=== PATIENT | female | born 1965 | race Caucasian/White ===

== ENCOUNTER 2018-11-11 06:38 | Emergency (ER) | payer SELFPAY ==
--- NOTE | 2018-11-11 08:01 | ER ---
Nurse's Notes [facility] Name: Kasey Morrison Age: 53 yrs Sex: Female : 1965 Arrival Date: 11/11/2018 Time: 06:48 Bed 14 Private MD: Diagnosis: Acute upper respiratory infection, unspecified Presentation: 11/11 06:53 Presenting complaint: Patient states: intermittent ear and throat pain associated with cc3 fever since 6 days. Transition of care: patient was not received from another setting of care. Onset of symptoms was November 04, 2018. Risk Assessment: Do you want to hurt yourself or someone else? Patient reports no desire to harm self or others. Initial Sepsis Screen: Does the patient meet any 2 criteria? No. Patient's initial sepsis screen is negative. Does the patient have a suspected source of infection? No. Patient's initial sepsis screen is negative. Care prior to arrival: None. 06:53 Method Of Arrival: Ambulatory cc3 06:53 Acuity: ASHLEY 3 cc3 Triage Assessment: 06:53 General: Appears in no apparent distress. comfortable, Behavior is calm, cooperative, cc3 appropriate for age. Pain: Complains of pain in right ear and throat Pain currently is 8 out of 10 on a pain scale. Quality of pain is described as aching. EENT: Reports pain in right ear. Neuro: Level of Consciousness is awake, alert, obeys commands, Oriented to person, place, time, situation, Appropriate for age. Cardiovascular: Patient's skin is warm and dry. Respiratory: Airway is patent Respiratory effort is even, unlabored, Respiratory pattern is regular, symmetrical. GI: Abdomen is round obese. : No signs and/or symptoms were reported regarding the genitourinary system. Derm: No signs and/or symptoms reported regarding the dermatologic system. Musculoskeletal: Circulation, motion, and sensation intact. Range of motion: intact in all extremities. [employer]: 06:53 LMP N/A - Hysterectomy cc3 Historical: - Allergies: 06:53 PENICILLINS; cc3 - Home Meds: 06:53 warfarin 5 mg Oral tab 1 tab once daily [Active]; Zoloft Oral for Anxiety with cc3 Depression [Active]; - PMHx: 06:53 portal vein thrombosis; Depression; Anxiety; cc3 - PSHx: 06:53 breast augmentation in 1998; cc3 - Immunization history:: Adult Immunizations not up to date. - Social history:: Smoking status: Patient uses tobacco products, 7-8 sticks per day. - Ebola Screening: : No symptoms or risks identified at this time. Screenin:53 Abuse screen: Denies threats or abuse. Denies injuries from another. Nutritional cc3 screening: No deficits noted. Tuberculosis screening: No symptoms or risk factors identified. Fall Risk Ambulatory Aid- None/Bed Rest/Nurse Assist (0 pts). Gait- Normal/Bed Rest/Wheelchair (0 pts) Mental Status- Oriented to own ability (0 pts). Assessment: 07:21 Reassessment: Patient appears in no apparent distress at this time. No changes from sv previously documented assessment. Patient and/or family updated on plan of care and expected duration. Pain level reassessed. Patient is alert, oriented x 3, equal unlabored respirations, skin warm/dry/pink. 08:12 Reassessment: Patient appears in no apparent distress at this time. Patient and/or sv family updated on plan of care and expected duration. Pain level reassessed. Patient is alert, oriented x 3, equal unlabored respirations, skin warm/dry/pink. Vital Signs: 06:53 BP 137 / 98; Pulse 92; Resp 18 S; Temp 98.6(O); Pulse Ox 97% on R/A; Weight 81.65 kg cc3 (R); Height 5 ft. 7 in. (170.18 cm) (R); Pain 8/10; 06:53 Body Mass Index 28.19 (81.65 kg, 170.18 cm) cc3 ED Course: 06:48 Patient arrived in ED. es 06:53 Arm band placed on right wrist. Patient notified of wait time. cc3 06:53 Patient has correct armband on for positive identification. Bed in low position. Call cc3 light in reach. Side rails up X 1. Pulse ox on. NIBP on. 07:07 Triage completed. cc3 07:11 Gibson Dietrich PA is PHCP. cp 07:11 Jareth iGles MD is Attending Physician. cp 07:20 Tesha Montalvo, NEHA is Primary Nurse. sv 07:22 Strep swab sent to lab. ms 07:38 Awaiting lab results. sv 08:13 No provider procedures requiring assistance completed. Patient did not have IV access sv during this emergency room visit. Administered Medications: No medications were administered Outcome: 07:59 Discharge ordered by . cristian 08:13 Discharged to home ambulatory. sv 08:13 Condition: stable 08:13 Discharge instructions given to patient, Instructed on discharge instructions, follow up and referral plans. medication usage, Demonstrated understanding of instructions, follow-up care, medications, Prescriptions given X 3. 08:13 Patient left the ED. sv Signatures: Tesha Montalvo RN RN Valery Palacios Maria ms Page, Corey, PA PA Sheri Pena cc3
--- NOTE | 2018-11-11 08:01 | EDPHYS ---
Physician Documentation [facility] Name: Kasey Morrison Age: 53 yrs Sex: Female : 1965 Arrival Date: 11/11/2018 Time: 06:48 Bed 14 Private MD: ED Physician Jareth Giles HPI: 11/11 07:20 This 53 yrs old Female presents to ER via Ambulatory with complaints of Ear cp Pain, Sore Throat. 07:20 The patient presents with pain, that is acute. cp 07:20 The complaints affect the right ear. Onset: The symptoms/episode began/occurred 6 cp day(s) ago. Associated signs and symptoms: Pertinent positives: sore throat, cough, Pertinent negatives: fever, sinus trouble, vomiting. Severity of symptoms: in the emergency department the symptoms are unchanged despite home interventions. [employer]: 06:53 LMP N/A - Hysterectomy cc3 Historical: - Allergies: 06:53 PENICILLINS; cc3 - Home Meds: 06:53 warfarin 5 mg Oral tab 1 tab once daily [Active]; Zoloft Oral for Anxiety with cc3 Depression [Active]; - PMHx: 06:53 portal vein thrombosis; Depression; Anxiety; cc3 - PSHx: 06:53 breast augmentation in 1998; cc3 - Immunization history:: Adult Immunizations not up to date. - Social history:: Smoking status: Patient uses tobacco products, 7-8 sticks per day. - Ebola Screening: : No symptoms or risks identified at this time. ROS: 07:25 Eyes: Negative for injury, pain, redness, and discharge. cp 07:25 Constitutional: Negative for body aches, chills, fever. 07:25 ENT: Positive for ear pain, sore throat, Negative for drainage from ear(s), sinus pain, difficulty swallowing, difficulty handling secretions. 07:25 Cardiovascular: Negative for chest pain. 07:25 Respiratory: Positive for cough, Negative for shortness of breath, wheezing. 07:25 Abdomen/GI: Negative for vomiting, diarrhea, constipation. 07:25 Skin: Negative for rash. 07:25 Neuro: Negative for dizziness, headache, weakness. 07:25 All other systems are negative. Exam: 07:33 Constitutional: The patient appears in no acute distress, alert, awake, non-toxic, well cp developed, well nourished. 07:33 Head/face: Sinus tenderness, is not appreciated. 07:33 Eyes: Periorbital structures: appear normal, Conjunctiva: normal, no exudate, no injection, Lids and lashes: appear normal, bilaterally. 07:33 ENT: External ear(s): are unremarkable, Ear canal(s): are normal, clear, TM's: bulging, is not appreciated, bilaterally, dullness, bilaterally, erythema, is not appreciated, bilaterally, Nose: is normal, Mouth: Lips: moist, Oral mucosa: pink and intact, moist, Posterior pharynx: Airway: no evidence of obstruction, patent, Tonsils: no enlargement, no erythema, no exudate, Uvula: midline, erythema, is not appreciated, exudate, is not appreciated, Voice: is normal. 07:33 Neck: ROM/movement: is normal, is supple, no range of motions limitations, no meningismus, no nuchal rigidity, Lymph nodes: no appreciated lymphadenopathy. 07:33 Chest/axilla: Inspection: normal, Palpation: is normal, no crepitus, no tenderness. 07:33 Cardiovascular: Rate: normal. 07:33 Respiratory: the patient does not display signs of respiratory distress, Respirations: normal, no use of accessory muscles, no retractions, no splinting, no tachypnea, labored breathing, is not present, Breath sounds: are clear throughout, no decreased breath sounds, no stridor, no wheezing. 07:33 Abdomen/GI: Inspection: abdomen appears normal. 07:33 Skin: no rash present. Vital Signs: 06:53 BP 137 / 98; Pulse 92; Resp 18 S; Temp 98.6(O); Pulse Ox 97% on R/A; Weight 81.65 kg cc3 (R); Height 5 ft. 7 in. (170.18 cm) (R); Pain 8/10; 06:53 Body Mass Index 28.19 (81.65 kg, 170.18 cm) cc3 MDM: 07:11 Patient medically screened. cp 07:35 Differential diagnosis: otitis media, otitis externa, ruptured TM, cerumen impaction, cp acute sinusitis, strep throat. 07:58 Data reviewed: vital signs, nurses notes, lab test result(s), and as a result, I will cp discharge patient. 07:58 Counseling: I had a detailed discussion with the patient and/or guardian regarding: the cp historical points, exam findings, and any diagnostic results supporting the discharge/admit diagnosis, lab results, to return to the emergency department if symptoms worsen or persist or if there are any questions or concerns that arise at home. 11/11 07:16 Order name: Strep cp 11/11 07:49 Order name: Throat Culture EDMS Administered Medications: No medications were administered Disposition: 08:20 Chart complete. cp Disposition: 11/11/18 07:59 Discharged to Home. Impression: Acute upper respiratory infection, unspecified. - Condition is Stable. - Discharge Instructions: Upper Respiratory Infection, Adult, Viral Respiratory Infection, Cough, Adult. - Prescriptions for Tessalon Perles 100 mg Oral Capsule - take 2 capsule by ORAL route every 8 hours As needed; 30 capsule. Albuterol Sulfate 90 mcg/actuation - inhale 1-2 puff by INHALATION route every 4-6 hours; 1 Inhaler. Nasonex 50 mcg/actuation Nasal spray,non- aerosol - spray 2 spray by INTRANASAL route once daily for 8-10 days; 1 unit. - Medication Reconciliation Form, Thank You Letter, Antibiotic Education, Prescription Opioid Use form. - Follow up: Private Physician; When: 2 - 3 days; Reason: Worsening of condition. - Problem is new. - Symptoms are unchanged. Addendum: 11/13/2018 19:40 Co-signature as Attending Physician, Jareth Giles MD. g s Signatures: Dispatcher [employer] Tesha Buenrostro RN RN sv Page, Corey, PA PA Jareth Hairston MD MD gs Cordel, Charlene cc3 Corrections: (The following items were deleted from the chart) 11/11 08:13 07:59 11/11/2018 07:59 Discharged to Home. Impression: Acute upper respiratory sv infection, unspecified. Condition is Stable. Forms are Medication Reconciliation Form, Thank You Letter, Antibiotic Education, Prescription Opioid Use. Follow up: Private Physician; When: 2 - 3 days; Reason: Worsening of condition. Problem is new. Symptoms are unchanged. cp
== END 2018-11-11 08:13 | disposition home or self-care (01) ==
LOC: ER 06:38
DX: J06.9 Acute upper respiratory infection, unspecified (principal); F32.9 Major depressive disorder, single episode, unspecified; F41.9 Anxiety disorder, unspecified; Z79.01 Long term (current) use of anticoagulants; Z88.0 Allergy status to penicillin; F17.210 Nicotine dependence, cigarettes, uncomplicated
CPT/HCPCS: 87070; 87081; 99283